=== PATIENT | female | born 2000 | race Caucasian/White ===

== ENCOUNTER 2019-04-16 10:15 | Outpatient (CLI) | payer BC ==
[~2019-04-16] VITALS: Ht 167.6 cm; Wt 70.4 kg
[2019-04-16 10:36] VITALS: BP 115/82
[2019-04-16 12:12] LABS: MICROSCOPIC AUTO
[2019-04-16 12:39] LABS: BASOPHILS # (AUTO) 0.02 x10^3/uL (0-0.3); BASOPHILS % (AUTO) 0 % (0-1); EOSINOPHILS % (AUTO) 0 % (1-7); LYMPHOCYTES # (AUTO) 0.81 x10^3/uL (1-6.1); LYMPHOCYTES % (AUTO) 6 % (22-44); MD NO; MEAN CORPUSCULAR HEMOGLOBIN 27.8 pg (27.0-34.8); MEAN CORPUSCULAR HGB CONC 32.5 g/dL (32.4-35.8); MEAN CORPUSCULAR VOLUME 85.4 fL (80-100); MEAN PLATELET VOLUME 8.1 fL (7.4-10.4); MONOCYTES # (AUTO) 0.24 x10^3/uL (0-1.4); MONOCYTES % (AUTO) 2 % (2-9); NEUTROPHILS # (AUTO) 12.14 x10^3/uL (1.8-8.0); NEUTROPHILS % (AUTO) 92 % (42-75); PLATELET COUNT 243 x10^3/uL (130-400); RED BLOOD COUNT 4.27 x10^6/uL (3.82-5.3); RED CELL DISTRIBUTION WIDTH 12.9 % (9.6-15.2)
[2019-04-16 12:47] LABS: ALANINE AMINOTRANSFERASE 19 U/L (12-78); ALBUMIN 2.6 g/dL (3.4-5.0); ANION GAP 5 mmol/L (5-15); CHLORIDE 113 mmol/L (98-107); CREATININE 0.47 mg/dL (0.55-1.02)
[2019-04-16 12:49] LABS: ALKALINE PHOSPHATASE 74 U/L (45-117); BILIRUBIN,TOTAL 0.2 mg/dL (0.2-1.0); TOTAL PROTEIN 6.2 g/dL (6.4-8.2)
[2019-04-16 13:33] LABS: AMPHETAMINE SCREEN, URINE Negative (Negative); BARBITURATE SCREEN, URINE Negative (Negative); BENZODIAZEPINE SCREEN, URINE Negative (Negative); CANNABINOID SCREEN, URINE Negative (Negative); COCAINE SCREEN, URINE Negative (Negative); METHADONE SCREEN, URINE Negative (Negative); OPIATE SCREEN, URINE Negative (Negative)
== END 2019-04-16 14:35 | disposition home or self-care (01) ==
LOC: LDOP 10:15 → NSY 11:00 → UNDOADMIN 11:00 → INTOOBSV 11:00 → UNDOADMOB 11:00 → 2NW 11:00 → UNDODISOB 14:53
PROVIDERS: ATTEND Obstetrics & Gynecology
DX: O62.1 Secondary uterine inertia (principal); Z3A.25 25 weeks gestation of pregnancy
CPT/HCPCS: 36415; 76817; 80053; 80307; 81001; 85025; 87086; 99201; G0378; G0463